=== PATIENT | male | born 1975 | race Hispanic/Latino ===

== ENCOUNTER 2016-09-25 12:46 | Emergency (ER) | payer SELFPAY ==
[~2016-09-25] VITALS: Ht 160 cm; Wt 67.0 kg
[~2016-09-25 12:46] MED LIST: AMOXICILLIN500 MG PO; INVANZ1 GM IJ; MOTRIN800 MG PO; NAPROSYN500 MG PO
[2016-09-25] MEDS ORDERED: ULTRAM50 M1 PO (15:19)
[2016-09-25] MEDS ORDERED: FLEXERIL PO (15:19)
[2016-09-25 15:30] VITALS: BP 129/74
== END 2016-09-25 15:30 | disposition home or self-care (01) | DRG 563 ==
LOC: ED 12:46
DX: S39.012A Strain of muscle, fascia and tendon of lower back, initial encounter (principal); M54.31 Sciatica, right side; X58.XXXA Exposure to other specified factors, initial encounter

== ENCOUNTER 2018-02-11 11:47 | Emergency (ER) | payer MEDICAID ==
[~2018-02-11] VITALS: Ht 160 cm; Wt 72.0 kg
[~2018-02-11 11:47] MED LIST changes: +FLEXERIL PO; +ULTRAM50 M1 PO
[2018-02-11] MEDS ORDERED: CEPHALEXIN500 M1 PO (13:07)
[2018-02-11] MEDS ORDERED: LORTAB 1010 MG PO (13:07)
[2018-02-11] MEDS ORDERED: BACTRIM DS1 TAB PO (13:07)
[2018-02-11 13:18] VITALS: BP 147/94
== END 2018-02-11 13:25 | disposition home or self-care (01) ==
LOC: ED 11:47
DX: L02.415 Cutaneous abscess of right lower limb (principal); M79.89 Other specified soft tissue disorders; B95.61 Methicillin susceptible Staphylococcus aureus infection as the cause of diseases classified elsewhere

== ENCOUNTER 2018-02-12 08:58 | Emergency (ER) | payer MEDICAID ==
[~2018-02-12] VITALS: Ht 160 cm; Wt 75.0 kg
[~2018-02-12 08:58] MED LIST changes: +BACTRIM DS1 TAB PO; +CEPHALEXIN500 M1 PO; +LORTAB 1010 MG PO
[2018-02-12 09:45] VITALS: BP 122/74
== END 2018-02-12 09:45 | disposition home or self-care (01) ==
LOC: ED 08:58
DX: Z48.01 Encounter for change or removal of surgical wound dressing (principal)

== ENCOUNTER 2018-07-11 05:55 | Emergency (ER) | payer MEDICAID ==
[~2018-07-11] VITALS: Ht 160 cm; Wt 72.7 kg
[2018-07-11 06:29] LABS: HEMATOCRIT 45.4 % (39.0-50.0); HEMOGLOBIN 15.6 g/dl (14.0-18.0); IMMATURE GRANULOCYTES 0.4 % (0.0-5.0); MEAN CELL VOLUME 90.4 fL CALC (80.0-100.0); MEAN CORPUSCULAR HGB 31.1 pG CALC (26.0-32.0); MEAN CORPUSCULAR HGB CONC 34.4 g/L CALC (32.0-36.0); NEUT# 3.49 thou/uL (1.82-7.42); RED BLOOD COUNT 5.02 mill/uL (4.70-6.10); RED CELL DISTRI WIDTH 11.8 % (11.5-15.5)
[2018-07-11 06:49] LABS: ALBUMIN 4.4 g/dL (3.2-5.0); ALKALINE PHOSPHATASE 57 u/l (38-126); ANION GAP 14 (6-22 (CALC)); BILIRUBIN, TOTAL 1.5 mg/dL (0.0-1.4); BUN 21 mg/dL (9-20); BUN/CREATININE RATIO 26 (12-20 (CALC)); CARBON DIOXIDE 27 mmol/l (22-30); CHLORIDE 103 mmol/l (95-108); CREATININE 0.8 mg/dL (0.7-1.3); GFR > 60 ML/MIN (>=60 (CALC)); GFR FOR AFR.AMER. > 60 ML/MIN (>=60 (CALC)); POTASSIUM 3.9 mmol/l (3.5-5.1); SGOT/AST 32 u/l (17-59); SODIUM 140 mmol/l (137-146); TOTAL PROTEIN 7.2 g/dL (6.3-8.2)
[2018-07-11] MEDS ORDERED: AUGMENTIN875TAB PO (07:50)
[2018-07-11] MEDS ORDERED: BACTRIM DS1 TAB PO (07:50)
[2018-07-11 08:32] VITALS: BP 157/93
== END 2018-07-11 08:55 | disposition home or self-care (01) ==
LOC: ED 05:55
PROVIDERS: Emergency Medicine
DX: R22.0 Localized swelling, mass and lump, head (principal); G50.1 Atypical facial pain

== ENCOUNTER 2019-04-22 20:00 | Inpatient (IN) | payer MEDICAID ==
[~2019-04-22] VITALS: Ht 160 cm; Wt 71.4 kg
[~2019-04-22 20:00] MED LIST changes: +AUGMENTIN875TAB PO
[2019-04-23] VITALS (8 sets, daily range): BP systolic 141–178; BP diastolic 70–101
--- NOTE | 2019-04-23 04:00 | NUR ---
PATIENT RESTING IN BED IN ROOM, DENIES PAIN OR DISCOMFORT CALL LIGHT AT REACH.
[2019-04-23 04:21] LABS: HEMATOCRIT 45.6 % (39.0-50.0); HEMOGLOBIN 15.8 g/dl (14.0-18.0); IMMATURE GRANULOCYTES 0.3 % (0.0-5.0); MEAN CELL VOLUME 90.7 fL CALC (80.0-100.0); MEAN CORPUSCULAR HGB 31.4 pG CALC (26.0-32.0); MEAN CORPUSCULAR HGB CONC 34.6 g/L CALC (32.0-36.0); NEUT# 4.1 thou/uL (1.82-7.42); RED BLOOD COUNT 5.03 mill/uL (4.70-6.10); RED CELL DISTRI WIDTH 12.1 % (11.5-15.5)
[2019-04-23 04:58] LABS: ALBUMIN 4.5 g/dL (3.2-5.0); ALKALINE PHOSPHATASE 92 u/l (38-126); ANION GAP 14 (6-22 (CALC)); BILIRUBIN, TOTAL 0.7 mg/dL (0.0-1.4); BUN 13 mg/dL (9-20); BUN/CREATININE RATIO 12 (12-20 (CALC)); CARBON DIOXIDE 26 mmol/l (22-30); CHLORIDE 101 mmol/l (95-108); CREATININE 1.1 mg/dL (0.7-1.3); GFR > 60 ML/MIN (>=60 (CALC)); GFR FOR AFR.AMER. > 60 ML/MIN (>=60 (CALC)); POTASSIUM 3.7 mmol/l (3.5-5.1); SGOT/AST 57 u/l (17-59); SODIUM 136 mmol/l (137-146); TOTAL PROTEIN 7.9 g/dL (6.3-8.2)
[2019-04-23 05:01] LABS: GFR 60 ML/MIN (>=60 (CALC)); GFR FOR AFR.AMER. > 60 ML/MIN (>=60 (CALC))
[2019-04-23 07:11] LABS: URINE BILIRUBIN - DIPSTICK NEGATIVE (NEGATIVE); URINE BLOOD DIPSTICK NEGATIVE (NEGATIVE); URINE CLARITY CLEAR; URINE COLOR YELLOW; URINE GLUCOSE - DIPSTICK 100 mg/dL (NEGATIVE); URINE KETONE NEGATIVE (NEGATIVE); URINE LEUK ESTERASE NEGATIVE (Negative); URINE NITRITE - DIPSTICK NEGATIVE (Negative); URINE PH 5.5 (4.5-8.0); URINE PROTEIN - DIPSTICK NEGATIVE (NEG-TRACE); URINE UROBILINOGEN - DIPSTICK 0.2 E.U./dL (0.2)
--- NOTE | 2019-04-23 08:08 | NUR ---
ASSESSMENT DONE. TELE IN PLACE. PT IS A&O X3. PT DENIES PAIN AT THIS TIME. RESPS EVEN AND UNLABORED. PT DENIES NEEDS AT THIS TIME. CALL LIGHT IN REACH. NOTIFIED LEANDER SAENZ RE: PT BP 167/88.
--- NOTE | 2019-04-23 12:58 | NUR ---
PT VISITING IN ROOM WITH FAMILY. TELE IN PLACE. PT DENIES NEEDS. CALL LIGHT IN REACH.
[2019-04-23 13:44] LABS: HEMATOCRIT 48.9 % (39.0-50.0); HEMOGLOBIN 16.4 g/dl (14.0-18.0); IMMATURE GRANULOCYTES 0.5 % (0.0-5.0); MEAN CELL VOLUME 92.3 fL CALC (80.0-100.0); MEAN CORPUSCULAR HGB 30.9 pG CALC (26.0-32.0); MEAN CORPUSCULAR HGB CONC 33.5 g/L CALC (32.0-36.0); NEUT# 3.84 thou/uL (1.82-7.42); RED BLOOD COUNT 5.3 mill/uL (4.70-6.10); RED CELL DISTRI WIDTH 12.3 % (11.5-15.5)
[2019-04-23 14:08] LABS: ANION GAP 14 (6-22 (CALC)); BUN 14 mg/dL (9-20); BUN/CREATININE RATIO 15 (12-20 (CALC)); CARBON DIOXIDE 28 mmol/l (22-30); CHLORIDE 101 mmol/l (95-108); GFR > 60 ML/MIN (>=60 (CALC)); GFR FOR AFR.AMER. > 60 ML/MIN (>=60 (CALC)); MAGNESIUM 2.3 mg/dL (1.6-2.3); POTASSIUM 4.1 mmol/l (3.5-5.1); SODIUM 139 mmol/l (137-146)
--- NOTE | 2019-04-23 15:42 | NUR ---
MEDICATED PT WITH APRESOLINE FOR BP 171/100. PT STATED STILL HAS PRESSURE IN EYES BUT NO PAIN. IN ROOM. CALL LIGHT IN REACH. NOTIFIED LEANDER SAENZ RE: PT CONCERNS AND BP.
[2019-04-23 16:53] LABS: BARBITURATES NEGATIVE (NEGATIVE); COCAINE POSITIVE (NEGATIVE); METHADONE NEGATIVE (NEGATIVE); TETRAHYDROCANNABIONOL NEGATIVE (NEGATIVE); TRICYLIC ANTIDEPRESSANTS NEGATIVE (NEGATIVE)
[2019-04-23 16:54] LABS: OXCYCODONE NEGATIVE (NEGATIVE)
--- NOTE | 2019-04-23 17:21 | NUR ---
NOTIFIED LEANDER SAENZ RE: PER ED PT TELE READING 110. ORDER RECEIVED FOR XANAX.
[2019-04-23] MEDS ORDERED: ASPIRIN CHEWABL81 MG PO (18:35)
[2019-04-23] MEDS ORDERED: AMLODIPINE BESYL5 MG PO (18:36)
--- NOTE | 2019-04-23 19:35 | NUR ---
DISHCARGE INSTRUCTIONS GIVEN, PT. FLUENT IN PANAMANIAN AND VERBALIZES UNDERSTANDING AND DENIES ANY QUESTIONS IN REGARDS TO DISHCARGE. PT. STABLE. IV SITE REMOVED AND CATHETER TIP INTACT.
--- NOTE | 2019-04-23 19:43 | NUR ---
PT. LEFT VIA W/C ACCOMPANIED BY S/O AND STRING LASTER. TELEMETRY RETURNED TO ER.
== END 2019-04-23 19:45 | disposition home or self-care (01) | DRG 69 ==
LOC: ED 20:32 → MS2 23:40
PROVIDERS: Nurse Practitioner Family; ADMIT Internal Medicine; ATTEND Internal Medicine
DX: G45.9 Transient cerebral ischemic attack, unspecified (principal); F41.1 Generalized anxiety disorder; F17.210 Nicotine dependence, cigarettes, uncomplicated; R03.0 Elevated blood-pressure reading, without diagnosis of hypertension
CPT/HCPCS: Q9967

== ENCOUNTER 2022-04-08 23:15 | Emergency (ER) | payer SELFPAY ==
[~2022-04-08] VITALS: Ht 160 cm; Wt 72.7 kg
[~2022-04-08 23:15] MED LIST changes: +AMLODIPINE BESYL5 MG PO; +ASPIRIN CHEWABL81 MG PO
[2022-04-08 23:44] VITALS: BP 171/120
== END 2022-04-08 23:35 | disposition left against medical advice (07) | DRG 951 ==
LOC: ED 23:15 → LWOBS 23:35
DX: Z53.21 Procedure and treatment not carried out due to patient leaving prior to being seen by health care provider (principal)

== ENCOUNTER 2022-12-17 23:40 | Emergency (ER) | payer SELFPAY ==
[~2022-12-17] VITALS: Ht 160 cm; Wt 72.5 kg
[2022-12-17] MEDS ORDERED: VIBRAMYCIN100 M2 PO (23:55)
[2022-12-18 00:06] VITALS: BP 136/91
== END 2022-12-18 00:20 | disposition home or self-care (01) | DRG 605 ==
LOC: ED 23:40
DX: S91.312A Laceration without foreign body, left foot, initial encounter (principal); F17.200 Nicotine dependence, unspecified, uncomplicated; W26.8XXA Contact with other sharp object(s), not elsewhere classified, initial encounter; Y92.832 Beach as the place of occurrence of the external cause